=== PATIENT | female | born 1950 | race Caucasian/White ===

== ENCOUNTER 2021-03-23 10:20 | Inpatient (IN) | payer MEDICARE, MEDICAID ==
[~2021-03-23] VITALS: Ht 167.6 cm; Wt 50.8 kg
[2021-03-23] MEDS ORDERED: SODIUM CHLORIDE 0.9% 1,000 ML IV ONE (15:15)
[2021-03-23 15:27] LABS: BASOPHILS % 0.2 % (0.0-2.0); EOSINOPHILS % 4.8 % (0.0-5.0); HEMATOCRIT. 46.8 % (36.0-48.0); HEMOGLOBIN. 15.4 g/dL (12.0-16.0); MEAN CORPUSCULAR HEMOGLOBIN 30.8 pg (28.0-32.0); MEAN CORPUSCULAR VOLUME 93.6 fL (81.0-99.0); PLATELET 157 x1000/uL (130-400); RED CELL DISTRIBUTION WIDTH 13.4 % (11.6-14.6)
[2021-03-23 15:29] LABS: CHLORIDE 110 mEq/L (98-107)
[2021-03-23 17:05] LABS: CLARITY URINE CLOUDY (CLEAR); COLOR URINE YELLOW (YELLOW); KETONES URINE NEGATIVE (NEGATIVE); LEUKOCYTE ESTERASE URINE 1+ (NEGATIVE); NITRITE URINE NEGATIVE (NEGATIVE); OCCULT BLOOD URINE NEGATIVE (NEGATIVE); PROTEIN URINE NEGATIVE (NEGATIVE); SPECIFIC GRAVITY URINE 1.013 (1.005-1.030); UROBILINOGEN URINE 0.2 E.U./dL (0.2-1.0)
[2021-03-23] MEDS ORDERED: DIPHENHYDRAMINE 50MG/ML VIAL IV PRN (23:00)
[2021-03-23] MEDS ORDERED: LORAZEPAM 2MG/ML CPJ IV PRN (23:00)
[2021-03-23] MEDS ORDERED: ACETAMINOPHEN 325MG TABLET PO PRN ×2 (23:00)
[2021-03-23] MEDS ORDERED: GUAIFENESIN 200MG/10ML SUGAR FREE UDC PO PRN (23:00)
[2021-03-23] MEDS ORDERED: MAGNESIUM/ALUMINUM HYDROXIDE/SIMETHICONE 30ML UDC PO PRN (23:00)
[2021-03-23] MEDS ORDERED: ONDANSETRON HCL 4MG/2ML INJ IV PRN (23:00)
[2021-03-23] MEDS ORDERED: CLONIDINE 0.1MG TABLET PO PRN (23:00)
[2021-03-23] MEDS ORDERED: MAGNESIUM HYDROXIDE 400MG/5ML 30ML UDC PO PRN (23:00)
[2021-03-23] MEDS ORDERED: ZOLPIDEM TARTRATE 5MG TABLET PO PRN (23:00)
[2021-03-23 23:30] VITALS: BP 121/60
[2021-03-24] MEDS ORDERED: CALC250T2 MT (01:22)
[2021-03-24] MEDS ORDERED: BRIM5DRO LEFTEYE (01:22)
[2021-03-24] MEDS ORDERED: NAPR-677 MT (01:22)
[2021-03-24] MEDS ORDERED: DIPH25TA24 MT (01:22)
[2021-03-24] MEDS ORDERED: LEVA0.6320 NEB (01:22)
[2021-03-24] MEDS ORDERED: FAMO20TA8 MT (01:22)
[2021-03-24] MEDS ORDERED: LOPE1LIQ42 PO (01:22)
[2021-03-24] MEDS ORDERED: FURO40TA5 MT (01:22)
[2021-03-24] MEDS ORDERED: ASCO500C15 MT (01:22)
[2021-03-24] MEDS ORDERED: ONDA4TAB5 MT (01:22)
[2021-03-24] MEDS ORDERED: AZOPT LEFTEYE (01:22)
[2021-03-24] MEDS ORDERED: CARB15DR LEFTEYE (01:22)
[2021-03-24] MEDS ORDERED: LORA10CA MT (01:22)
[2021-03-24] MEDS ORDERED: DOCU-150 MT (01:22)
[2021-03-24] MEDS ORDERED: SODI88SP18 BOTHNSTRLS (01:22)
[2021-03-24] MEDS ORDERED: PHEN100C4 PO (01:22)
[2021-03-24] MEDS ORDERED: LATA2.5D14 LEFTEYE (01:22)
[2021-03-24] MEDS ORDERED: LEVO100T MT (01:22)
[2021-03-24] MEDS ORDERED: VITA1CAP MT (01:22)
[2021-03-24] MEDS ORDERED: FISH MT (01:22)
[2021-03-24] MEDS ORDERED: MULT-1116 MT (01:22)
[2021-03-24] MEDS ORDERED: NASOI BOTHNSTRLS (01:22)
[2021-03-24] MEDS ORDERED: BUDE0.5A3 NEB (01:22)
[2021-03-24 04:00] VITALS: BP 137/64
[2021-03-24] MEDS: PHENYTOIN SODIUM EXTENDED 100MG CAPSULE PO SCH ×3 (05:22→18:41)
[2021-03-24] MEDS: SODIUM CHLORIDE 0.9% INJ 3ML FLUSH IVF SCH ×3 (05:22→22:00)
[2021-03-24 08:12] VITALS: BP 111/60
[2021-03-24 12:06] VITALS: BP 104/50
[2021-03-24 16:18] VITALS: BP 114/45
[2021-03-24] MEDS ORDERED: NON FORMULARY PATIENT HOME MED OP SCH (18:00)
[2021-03-24] MEDS: BRIMONIDINE 0.2% OPHTH DROPS 5ML LEFTEYE SCH (18:29)
[2021-03-24] MEDS: LATANOPROST 0.005% OPHTH DROPS 2.5ML LEFTEYE SCH (18:30)
[2021-03-24] MEDS: POLYVINYL ALCOHOL OPHTH DROPS 15ML LEFTEYE SCH (18:30)
[2021-03-24 20:00] VITALS: BP_SYST 113; BP_SYST 114; BP_SYST 123; BP_SYST 99; BP_DIAS 45; BP_DIAS 66; BP_DIAS 70; BP_DIAS 85
[2021-03-25] VITALS (7 sets, daily range): BP systolic 96–114; BP diastolic 42–80
[2021-03-25] MEDS: SODIUM CHLORIDE 0.9% INJ 3ML FLUSH IVF SCH ×3 (05:25→21:36)
[2021-03-25] MEDS: BRIMONIDINE 0.2% OPHTH DROPS 5ML LEFTEYE SCH ×2 (08:21→21:36)
[2021-03-25] MEDS: PHENYTOIN SODIUM EXTENDED 100MG CAPSULE PO SCH ×2 (08:21→16:48)
[2021-03-25] MEDS: POLYVINYL ALCOHOL OPHTH DROPS 15ML LEFTEYE SCH ×4 (08:21→21:35)
[2021-03-25] MEDS: LATANOPROST 0.005% OPHTH DROPS 2.5ML LEFTEYE SCH (21:36)
[2021-03-25] MEDS: DORZOLAMIDE 2% OPHTH 10 ML BOTTLE LEFTEYE SCH (21:36)
[2021-03-26] VITALS: BP 108/74
[2021-03-26 04:00] VITALS: BP 100/51
[2021-03-26 04:16] VITALS: BP 100/51
[2021-03-26] MEDS: SODIUM CHLORIDE 0.9% INJ 3ML FLUSH IVF SCH ×2 (05:55→14:22)
[2021-03-26] MEDS: POLYVINYL ALCOHOL OPHTH DROPS 15ML LEFTEYE SCH ×2 (08:01→14:23)
[2021-03-26] MEDS: PHENYTOIN SODIUM EXTENDED 100MG CAPSULE PO SCH (08:01)
[2021-03-26] MEDS: DORZOLAMIDE 2% OPHTH 10 ML BOTTLE LEFTEYE SCH (08:01)
[2021-03-26] MEDS: BRIMONIDINE 0.2% OPHTH DROPS 5ML LEFTEYE SCH (08:02)
[2021-03-26 08:12] VITALS: BP 131/76
[2021-03-26 12:00] VITALS: BP 101/58
== END 2021-03-26 18:01 | DRG 74 ==
LOC: ER 10:20 → MICUSO 17:41 → 6WST 22:37
PROVIDERS: ADMIT Internal Medicine; ATTEND Internal Medicine
DX: G90.9 Disorder of the autonomic nervous system, unspecified (principal); E44.0 Moderate protein-calorie malnutrition; Z68.1 Body mass index [BMI] 19.9 or less, adult; R55 Syncope and collapse; G40.909 Epilepsy, unspecified, not intractable, without status epilepticus; H40.9 Unspecified glaucoma; I25.10 Atherosclerotic heart disease of native coronary artery without angina pectoris; F03.90 Unspecified dementia, unspecified severity, without behavioral disturbance, psychotic disturbance, mood disturbance, and anxiety; Z20.822 Contact with and (suspected) exposure to COVID-19; I10 Essential (primary) hypertension; Z88.1 Allergy status to other antibiotic agents; Z88.8 Allergy status to other drugs, medicaments and biological substances; Z91.018 Allergy to other foods
CPT/HCPCS: 36415; 71045; 80053; 80185; 81003; 83880; 84484; 85025; 87426; 93005; 99285; J7030